=== PATIENT | female | born 1995 | race Caucasian/White ===

== ENCOUNTER 2022-02-19 19:10 | Emergency (ER) | payer MEDICAID ==
[~2022-02-19] VITALS: Ht 160 cm; Wt 59.1 kg
[2022-02-19 19:34] VITALS: BP 99/58
[2022-02-19 20:16] LABS: BASOPHILS % (AUTO) 0.5 % (0-1); EOSINOPHILS # (AUTO) 0.1 X10'3 (0-0.9); EOSINOPHILS % (AUTO) 0.7 % (0-6); HEMATOCRIT 38.8 % (35.0-45.0); HEMOGLOBIN 13.7 g/dl (12.0-16.0); LYMPHOCYTES # (AUTO) 2.1 X10'3 (1.1-4.8); LYMPHOCYTES % (AUTO) 25.2 % (21-51); MEAN CORPUSCULAR HEMOGLOBIN 30.9 PG (27.0-31.0); MEAN CORPUSCULAR HGB CONC 35.1 g/dL (33.0-36.5); MEAN CORPUSCULAR VOLUME 87.9 FL (78-98); MEAN PLATELET VOLUME 7.5 FL (7.4-10.4); MONOCYTES # (AUTO) 0.5 X10'3 (0-0.9); MONOCYTES % (AUTO) 5.8 % (2-12); NEUTROPHILS # (AUTO) 5.7 X10'3 (1.8-7.7); NEUTROPHILS % (AUTO) 67.8 % (42-75); PLATELET COUNT 251 X10'3 (140-440); RED BLOOD COUNT 4.42 X10'6 (4.20-5.60); RED CELL DISTRIBUTION WIDTH 12.8 % (11.5-14.5); WHITE BLOOD COUNT 8.4 X10'3 (4.5-11.0)
[2022-02-19 20:30] LABS: ALANINE AMINOTRANSFERASE 18 U/L (12-78); ALBUMIN 4.2 G/DL (3.4-5.0); ALBUMIN/GLOBULIN RATIO 1.2 (1.1-1.5); ALKALINE PHOSPHATASE 74 IU/L (46-116); ANION GAP 10 (8-16); ASPARTATE AMINO TRANSFERASE 14 U/L (10-37); BILIRUBIN,TOTAL 0.3 MG/DL (0.1-1.0); BLOOD UREA NITROGEN 15 MG/DL (7-18); BUN/CREATININE RATIO 19.5 (6.6-38.0); CALCIUM 8.9 MG/DL (8.5-10.1); CHLORIDE 105 MMOL/L (99-107); CREATININE 0.77 MG/DL (0.40-0.90); GLUCOSE 88 MG/DL (70-104); LIPASE 57 U/L (73-393); POTASSIUM 3.9 MMOL/L (3.5-5.1); SODIUM 143 MMOL/L (135-145); TOTAL CARBON DIOXIDE 28.5 MMOL/L (24-32); TOTAL PROTEIN 7.6 G/DL (6.4-8.2); eGFR > 90 ML/MIN
[2022-02-19 21:19] LABS: URINE HCG NEGATIVE (NEG)
[2022-02-19 21:33] LABS: CLARITY,URINE SLIGHTLY CLOUDY (Clear); COLOR,URINE YELLOW (Yellow); GLUCOSE, URINE NEGATIVE (Neg); KETONES,URINE NEGATIVE (Neg); LEUKOCYTE ESTERASE ,URINE TRACE (Neg); NITRITES, URINE NEGATIVE (Neg); OCCULT BLOOD,URINE MODERATE (Neg); PH,URINE 5.5 (4.8-8.0); PROTEIN,URINE TRACE mg/dl (Neg); UROBILINOGEN,URINE 0.2 E.U/dL (0.2-1.0)
[2022-02-19 21:35] LABS: UA COLLECTION TYPE CLN CATCH MIDSTREAM
[2022-02-19 21:52] LABS: WBC,URINE 50-100 /HPF (0-4)
[2022-02-19 21:53] LABS: BACTERIA,URINE 2+ /HPF (Neg); MUCUS STRANDS MANY /LPF (Neg); SQUAMOUS EPITHELIAL CELL,UR MODERATE /LPF (FEW)
[2022-02-20] MEDS ORDERED: DOXY-411 PO (10:38)
== END 2022-02-19 22:18 | disposition left against medical advice (07) ==
LOC: ER 19:11
DX: R10.9 Unspecified abdominal pain (principal); Z53.21 Procedure and treatment not carried out due to patient leaving prior to being seen by health care provider
CPT/HCPCS: 36415; 80053; 81001; 81025; 83690; 85025; 87077; 87088; 87186

== ENCOUNTER 2022-02-19 22:45 | Emergency (ER) | payer MEDICAID ==
[~2022-02-19] VITALS: Ht 160 cm; Wt 59.1 kg
[2022-02-20 05:44] VITALS: BP 90/54
--- NOTE | 2022-02-20 08:30 | NUR ---
Attempted to obtain midstream urine. Pt did not follow instructions to clean. Unable to send specimen due to contamination.
--- NOTE | 2022-02-20 08:45 | NUR ---
Sent to the restroom for the second time to obtain a midstream urine. She did not follow the instructions.
--- NOTE | 2022-02-20 08:50 | NUR ---
She tolerated drinking a cup of water.
[2022-02-20 10:03] LABS: CLARITY,URINE SLIGHTLY CLOUDY (Clear); COLOR,URINE YELLOW (Yellow); GLUCOSE, URINE NEGATIVE (Neg); KETONES,URINE NEGATIVE (Neg); LEUKOCYTE ESTERASE ,URINE LARGE (Neg); NITRITES, URINE NEGATIVE (Neg); OCCULT BLOOD,URINE NEGATIVE (Neg); PH,URINE 6.5 (4.8-8.0); PROTEIN,URINE NEGATIVE (Neg); URINE HCG NEGATIVE (NEG); UROBILINOGEN,URINE 0.2 E.U/dL (0.2-1.0)
[2022-02-20 10:08] LABS: UA COLLECTION TYPE CLN CATCH MIDSTREAM
[2022-02-20 10:09] LABS: MUCUS STRANDS MODERATE /LPF (Neg); SQUAMOUS EPITHELIAL CELL,UR MODERATE /LPF (FEW)
[2022-02-20 10:10] LABS: TRICHOMONAS,URINE MOD /HPF (NEGATIVE)
[2022-02-20 10:11] LABS: BACTERIA,URINE 1+ /HPF (Neg); RBC,URINE 0-2 /HPF (0-2)
[2022-02-20] MEDS ORDERED: DOXYCYCLINE 100MG CAPSULE PO STA (10:37)
[2022-02-20] MEDS ORDERED: DOXY-411 PO (10:38)
--- NOTE | 2022-02-20 10:40 | NUR ---
Pt given and understands d/c instructions. Ambulatory with a steady gait. Pt left the department before given medication.
== END 2022-02-20 10:40 | disposition home or self-care (01) ==
LOC: ER 22:46
DX: Z02.89 Encounter for other administrative examinations (principal); R10.84 Generalized abdominal pain; Z60.2 Problems related to living alone; Z56.0 Unemployment, unspecified; Z59.00 Homelessness unspecified; Z79.2 Long term (current) use of antibiotics
CPT/HCPCS: 81001; 81025; 87088; 99283

== ENCOUNTER 2022-02-21 14:07 | Emergency (ER) | payer MEDICAID ==
[~2022-02-21] VITALS: Ht 160 cm; Wt 61.4 kg
[~2022-02-21 14:07] MED LIST: DOXY-411 PO
[2022-02-21 14:11] VITALS: BP 95/53
== END 2022-02-21 16:26 | disposition home or self-care (01) ==
LOC: ER 14:07
DX: R10.9 Unspecified abdominal pain (principal); R51.9 Headache, unspecified; Z59.00 Homelessness unspecified; Z56.0 Unemployment, unspecified
CPT/HCPCS: 99283

== ENCOUNTER 2022-02-22 19:16 | Emergency (ER) | payer MEDICAID ==
--- NOTE | 2022-02-23 18:44 | NUR ---
ORDER FOR LEVAQUIN 500MG 1 PO DAILY X [address] COBB PER NOTE FROM [facility] AT THE REQUEST OF DR MELTON. NO PHONE NUMBER OR ADDRESS IN CHART. UNABLE TO CONTACT PT RE NEW RX. DR COBB NOTIFIED NO OTHER ORDER AT THIS TIME.
--- NOTE | 2022-02-24 10:11 | NUR ---
CALLED HAYDE FROM [facility] TO INFORM HIM OF NOT BEING ABLE TO GET IN TOUCH WITH PT. HE STATES HE WILL REACH OUT TO PUBLIC FOR THEM TO F/U.
== END 2022-02-22 20:50 | disposition left against medical advice (07) ==
LOC: ER 19:17
DX: R10.9 Unspecified abdominal pain (principal); Z53.21 Procedure and treatment not carried out due to patient leaving prior to being seen by health care provider

== ENCOUNTER 2022-02-25 01:24 | Emergency (ER) | payer MEDICAID ==
[~2022-02-25] VITALS: Ht 160 cm; Wt 59.1 kg
[2022-02-25 04:51] VITALS: BP 80/56
[2022-02-25] MEDS ORDERED: CefTRIAXone 1000mg IM Kit (w/lidocaine diluent) IM ONE (04:55)
== END 2022-02-25 05:20 | disposition left against medical advice (07) ==
LOC: ER 01:25
DX: R10.31 Right lower quadrant pain (principal); Z88.8 Allergy status to other drugs, medicaments and biological substances; Z56.0 Unemployment, unspecified; Z59.00 Homelessness unspecified
CPT/HCPCS: 99283

== ENCOUNTER 2022-02-25 23:16 | Emergency (ER) | payer MEDICAID ==
[~2022-02-25] VITALS: Ht 160 cm; Wt 61.3 kg
[2022-02-25 23:51] VITALS: BP 126/78
== END 2022-02-26 04:46 | disposition left against medical advice (07) ==
LOC: ER 23:17
DX: R10.9 Unspecified abdominal pain (principal); Z53.21 Procedure and treatment not carried out due to patient leaving prior to being seen by health care provider